=== PATIENT | female | born 1955 | race Caucasian/White ===

== ENCOUNTER 2024-05-04 10:28 | Outpatient (CLI) | payer MEDICARE ==
[~2024-05-04 10:28] MED LIST: ALBU8HFA IH; DICY10CA88 PO; DULO60CA65 PO; FAMO40TA7 PO; OMEP20CA16 PO; ROSU10TA72 PO
== END 2024-05-04 23:59 | disposition home or self-care (01) ==
LOC: RAD 10:28
PROVIDERS: ATTEND Neuromusculoskeletal Medicine & OMM
DX: R56.9 Unspecified convulsions (principal); R41.3 Other amnesia
CPT/HCPCS: 70450; 95816